=== PATIENT | female | born 2000 | race Caucasian/White ===

== ENCOUNTER 2021-03-22 10:56 | Emergency (ER) | payer MEDICAID, OTHER ==
[~2021-03-22] VITALS: Ht 165.1 cm; Wt 77.5 kg
[2021-03-22 10:59] VITALS: BP 108/68
[2021-03-22 12:28] LABS: CLARITY URINE CLOUDY (CLEAR); COLOR URINE ORANGE (YELLOW); KETONES URINE 1+ (NEGATIVE); LEUKOCYTE ESTERASE URINE 1+ (NEGATIVE); NITRITE URINE NEGATIVE (NEGATIVE); OCCULT BLOOD URINE 3+ (NEGATIVE); PROTEIN URINE 2+ (NEGATIVE); SPECIFIC GRAVITY URINE 1.027 (1.005-1.030)
[2021-03-22 12:52] LABS: UCG SCREEN NEGATIVE
[2021-03-22] MEDS ORDERED: CEPH500T MT (13:22)
== END 2021-03-22 13:51 | disposition home or self-care (01) ==
LOC: ER 10:56
DX: R10.2 Pelvic and perineal pain (principal); N39.0 Urinary tract infection, site not specified
CPT/HCPCS: 81003; 81025; 87086; 99283; A4217